=== PATIENT | female | born 1995 | race Caucasian/White ===

== ENCOUNTER 2021-01-15 16:14 | Emergency (ER) | payer OTHER ==
[2021-01-19] MEDS ORDERED: VISTARIL 50 MG50 MG PO (20:57)
== END 2021-01-15 16:35 | disposition left against medical advice (07) ==
LOC: ER1 16:14
DX: Z53.21 Procedure and treatment not carried out due to patient leaving prior to being seen by health care provider (principal)

== ENCOUNTER → 2021-01-19 | Emergency (ER) | payer OTHER ==
[~2021-01-19] MED LIST: VISTARIL 50 MG50 MG PO
[2021-01-19 20:08] LABS: RED BLOOD COUNT 4.58 M/UL (4.00-5.10); WHITE BLOOD COUNT 7.1 K/UL (4.5-11.0)
[2021-01-19 20:35] LABS: BUN/CREATININE RATIO 16 (0-10)
== END | disposition home or self-care (01) ==
LOC: ER1 19:11
PROVIDERS: Emergency Medicine
DX: R07.2 Precordial pain (principal)
CPT/HCPCS: 71045; 80053; 82550; 82553; 83874; 83880; 84484; 85025; 85379; 93005; 99285; J7030